=== PATIENT | female | born 1930 | race Caucasian/White ===

== ENCOUNTER 2018-09-16 17:56 | Emergency (ER) | payer OTHER ==
[~2018-09-16] VITALS: Ht 165.1 cm; Wt 77.1 kg
[~2018-09-16 17:56] MED LIST: COUMADIN 5 MG TA5 M1 PO; PACERONE 200 M200 M1 PO
[2018-09-16 18:02] VITALS: BP 132/74
[2018-09-16] MEDS ORDERED: ZANAFLEX2 MG PO (18:12)
[2018-09-16] MEDS ORDERED: CRESTOR10 MG PO (18:13)
[2018-09-16] MEDS ORDERED: TOPROL XL100 MG PO (18:14)
[2018-09-16] MEDS ORDERED: AMLODIPINE BESY10 MG PO (18:14)
[2018-09-16] MEDS ORDERED: METFORMIN HCL500 MG PO (18:15)
[2018-09-16] MEDS ORDERED: MAXZIDE-25 MG1 EACH PO (18:15)
[2018-09-16 18:16] LABS: ABSOLUTE BASOPHILS 0.1 thou/uL (0.0-0.2); ABSOLUTE EOSINOPHILS 0.2 thou/uL (0.0-0.7); ABSOLUTE LYMPHOCYTES 1.6 thou/uL (0.8-5.3); ABSOLUTE MONOCYTES 0.6 thou/uL (0.0-1.2); BASOPHILS 0.6 %; EOSINOPHILS 2.3 %; HEMATOCRIT 40.1 % (37.0-47.0); HEMOGLOBIN 13.5 gm/dL (12.0-15.0); LYMPHOCYTES 15.3 %; MCH 28.3 pg (26.0-34.0); MCHC 33.8 g/dL (28.0-37.0); MCV 83.7 fL (80.0-100.0); MONOCYTES 5.5 %; MPV 7.4 fl. (7.2-11.1); NUCLEATED RBCS 0 /100WBC; PLATELET COUNT* 320 thou/uL (150-400); POLYS 76.3 %; RBC 4.79 mil/uL (4.20-5.00); RDW-CV 13.8 % (10.5-14.5); WBC 10.4 thou/uL (4.0-11.0)
[2018-09-16 18:29] LABS: ALBUMIN 3.3 g/dL (3.4-5.0); CALCIUM 9.8 mg/dL (8.5-10.1); CREATININE 1.2 mg/dL (0.6-1.3); POTASSIUM 3.9 mmol/L (3.5-5.1); TOTAL BILIRUBIN 0.5 mg/dL (<0.1-1.0)
[2018-09-16 20:22] LABS: PROTIME 153.1 Seconds (9.20-11.50)
[2018-09-16 20:26] LABS: APTT 96.9 Seconds (25.0-31.3); INR 15.3
== END 2018-09-16 21:06 | disposition home or self-care (01) ==
LOC: M.ERS 17:56
PROVIDERS: Family Medicine
DX: R04.0 Epistaxis (principal); E78.00 Pure hypercholesterolemia, unspecified; M19.90 Unspecified osteoarthritis, unspecified site; I48.91 Unspecified atrial fibrillation; G62.9 Polyneuropathy, unspecified